=== PATIENT | female | born 1995 | race Caucasian/White ===

== ENCOUNTER 2016-07-18 10:30 | Outpatient (CLI) | payer BC, MEDICAID ==
[~2016-07-18] VITALS: Ht 160 cm; Wt 87.4 kg
[~2016-07-18 10:30] MED LIST: PREN1TAB49 PO
[2016-07-18 10:35] VITALS: BP 133/98; PULSE 85; RESP 19; Ht 160 cm; Wt 87.4 kg
--- NOTE | 2016-07-18 10:56 | RADRPT ---
PROCEDURE: US OB. CLINICAL INDICATION: Bleeding TECHNIQUE: Multiple sonographic images of the pelvis were obtained. The images were reviewed on a PACS workstation. COMPARISON: No prior studies are available for comparison. FINDINGS: There is a single live intrauterine . cardiac activity is identified at a rate of 13 7 beats per minute. presentation is cephalic. Placenta is posterior grade II. Biophysical profile score is as follows: Breathing 2 Movements 2 Tone 2 Fluid volume 2 Amniotic fluid index = 10.4 cm Total biophysical profile score = 8/8 IMPRESSION: Biophysical profile score = 8/8 Transvaginal cervical length is 3.7 cm RPTAT: HH .Jomar Bustillos MD, Date Time Electronically viewed and signed by .Jomar Bustillos MD, MD on 07/18/2016 10:56 .W/
[2016-07-18 10:59] LABS: URINE BLOOD (Dip) POC Trace-lysed (NEGATIVE)
[2016-07-18 11:59] LABS: ADD UMIC YES; URINE BILIRUBIN (Dip) NEGATIVE (NEGATIVE); URINE BLOOD (Dip) TRACE (NEGATIVE); URINE COLOR LT. YELLOW (YELLOW); URINE GLUCOSE (Dip) NEGATIVE (NEGATIVE); URINE KETONES (Dip) NEGATIVE (NEGATIVE); URINE LEUKOCYTE ESTERASE (Dip) 1+ (NEGATIVE); URINE NITRITE (Dip) NEGATIVE (NEGATIVE); URINE TOTAL PROTEIN (Dip) TRACE (NEGATIVE); URINE UROBILINOGEN (Dip) 0.2 E.U./dL (0.1-1.0)
--- NOTE | 2016-07-18 12:12 | TRIAGE ---
OB Triage Datetime Report Generated by CPN: 07/18/2016 12:12 Datetime: 07/18/2016 11:39 Stage of : OB Triage Maternal Assessment Level of Consciousness: Fully Conscious DTR's/Clonus: DTRs 1+ Headache: Denies Breath Sounds, Left: Clear and Equal Breath Sounds, Right: Clear and Equal Nausea/Vomiting: Denies RUQ Epigastric Pain: Denies Labor Evaluation Frequency: NONE Monitor Mode: External Resting Tone [place]: Relaxed Heart Rate FHR Baseline Rate: 130 Monitor Mode: External US Variability: Moderate 6-25 bpm Accelerations: 15X15 Decelerations: None Pain Assessment Pain Scale: 2 Pain Presence: Constant Pain Type: Ache Pain Location: Back Pain Goal: 3 Pain Relief Measures: Comfort Measures Membrane Status: Intact Datetime: 07/18/2016 11:34 Stage of : OB Triage Vaginal Exam Dilatation (cms): 0.0 Effacement (%): 0 Station: -4 Exam By: JESSICA RDZ Vaginal Bleeding: None Cervix, Consistency: Firm Cervix, Position: Posterior Datetime: 07/18/2016 11:00 Maternal Assessment Level of Consciousness: Fully Conscious DTR's/Clonus: DTRs 1+ Headache: Denies Blurred Vision: No Respiratory Effort: Unlabored Breath Sounds, Left: Clear and Equal Breath Sounds, Right: Clear and Equal Nausea/Vomiting: Denies RUQ Epigastric Pain: Denies Facial Edema: None Labor Evaluation Frequency: NONE Monitor Mode: External Resting Tone [place]: Relaxed Heart Rate FHR Baseline Rate: 130 Monitor Mode: External US Variability: Moderate 6-25 bpm Accelerations: 15X15 Decelerations: None Category: Category I Pain Assessment Pain Scale: 4 Pain Presence: Constant Pain Type: Ache Pain Location: Back Pain Goal: 3 Pain Relief Measures: Comfort Measures Membrane Status: Intact Datetime: 07/18/2016 10:45 Assessment Type: Triage Maternal Assessment Level of Consciousness: Fully Conscious DTR's/Clonus: DTRs 2+; No Clonus Headache: Denies Blurred Vision: No Respiratory Effort: Unlabored; Regular Rhythm; Equal Expansion Breath Sounds, Left: Clear and Equal Breath Sounds, Right: Clear and Equal Nausea/Vomiting: Denies RUQ Epigastric Pain: Denies Lower Extremities Edema: None Degree: None Upper Extremities Edema: None Degree: None Facial Edema: None Fall Risk Assessment History of Falling: (0) No Secondary Diagnosis: (0) No Ambulatory Aid: (0) Bedrest/Nurse Assist IV Therapy: (0) No Gait: (0) Normal/Bedrest/Immobile Mental Status: (0) Oriented to Own Ability Fall Score: 0 Fall Risk Score Definition: No Risk: No action required Datetime: 07/18/2016 10:42 EGA: 32.6 Datetime: 07/18/2016 10:28 Stage of : OB Triage Time of Arrival: 07/18/2016 10:28 Arrived By: Wheelchair Arrived From: Home Chief Complaint: PT CAME IN C/O BLEEDING SINCE MONDAY MORNING, STATES THAT HER BLEEDING STOPPED ON MONDAY AND RE-STARTED THIS AM WHEN SHE WIPPED THIS MORNING. Movement: Present Contractions: Denies/Absent Rupture of Membranes: Denies Vaginal Bleeding: Normal Show Vaginal Discharge: Present Recent Sexual Intercouse: Denies Abdominal Trauma: Not Applicable Patient Complaints: Back Pain Additional Patient Complaints: NONE Time Provider Notified: 07/18/2016 11:00 Provider Notified: CARON Initial Plan: MONITOR, BPP, PLACENTA, CERVICAL LENGHT
[2016-07-18 13:32] LABS: BACTERIA,URINE FEW; URINE RBCS 0-2 /HPF (0)
--- NOTE | 2016-07-18 13:43 | PN ---
DATE: The patient is a 20-year-old 33 at weeks with vaginal spotting several days ago. No vaginal bleeding , no draining fluid. Positive ____ . Vital signs within normal limits, ____ are active. Ultrasound within normal limits. ASSESSMENT AND PLAN: This patient is 33 weeks with ____ bleeding. The patient not actively bleeding at the current time and stable. The patient will be discharged home in stable condition. Dictated By: MANISHA BOURGEOIS MD /TYESHA Conf#: [id number] DID#: [id number]
== END 2016-07-18 12:00 | disposition home or self-care (01) ==
LOC: OBT 10:30 → L-D 10:32 → OBT 12:00
PROVIDERS: ATTEND Obstetrics & Gynecology
DX: O26.853 Spotting complicating pregnancy, third trimester (principal); Z3A.32 32 weeks gestation of pregnancy
CPT/HCPCS: 76817; 76818; 81001; Z7500; 81003; G0463

== ENCOUNTER 2016-08-04 18:39 | Outpatient (CLI) | payer BC ==
[~2016-08-04] VITALS: Ht 157.5 cm; Wt 90.4 kg
[2016-08-04 19:27] VITALS: BP 123/82; PULSE 86; RESP 18
[2016-08-04] MEDS ORDERED: FERR134T PO (19:34)
[2016-08-04] MEDS ORDERED: CALC600T11 PO (19:34)
--- NOTE | 2016-08-04 19:58 | RADRPT ---
PROCEDURE: US OB. CLINICAL INDICATION: Low EDWARD , pain, PIH TECHNIQUE: Transabdominal views of the pelvis are available for review. COMPARISON: 07/18/16 FINDINGS: There is a single intrauterine gestation in a vertex position. The heart rate is present at 148 bpm. The placenta is posterior. The EDWARD measures 12.7 cm. RPTAT: AA IMPRESSION: Normal EDWARD. .Rick Gleason MD, MD Date Time Electronically viewed and signed by .Rick Gleason MD, MD on 08/04/2016 19:57 .S/
[2016-08-04 20:50] LABS: ADD SCAN DIFF NO
[2016-08-04 20:59] LABS: BASOPHILS % 0.1 % (0.0-2.0); EOSINOPHILS % 0.2 % (0.0-7.0); HEMATOCRIT 34.6 % (37.0-47.0); HEMOGLOBIN 11.4 g/dl (12.0-16.0); LYMPHOCYTES # 1.6 10^3/ul (0.8-2.9); MEAN CORPUSCULAR HGB CONC 32.9 g/dl (32.0-37.0); MEAN CORPUSCULAR VOLUME 91.1 fl (82.0-101.0); MEAN PLATELET VOLUME 10.4 fl (7.4-10.4); MONOCYTE # 0.5 10^3/ul (0.3-0.9); MONOCYTES % 6.2 % (0.0-11.0); NEUTROPHIL # 6.2 10^3/ul (1.6-7.5); PLATELET COUNT 227 10^3/UL (140-415); WHITE BLOOD COUNT 8.4 10^3/ul (4.8-10.8)
[2016-08-04 21:03] LABS: POTASSIUM 3.7 mmol/L (3.5-5.1)
[2016-08-04 21:05] LABS: CREATININE 0.51 mg/dl (0.44-1.00)
[2016-08-04 21:06] LABS: ALBUMIN/GLOBULIN RATIO 0.93; TOTAL PROTEIN 6.2 g/dl (6.1-8.1); URIC ACID 4.4 mg/dl (3.1-7.9)
[2016-08-04 21:07] LABS: CALCIUM 8.5 mg/dl (8.4-10.2)
[2016-08-04 21:57] LABS: ADD UMIC YES; URINE BILIRUBIN (Dip) NEGATIVE (NEGATIVE); URINE BLOOD (Dip) 1+ (NEGATIVE); URINE COLOR YELLOW (YELLOW); URINE GLUCOSE (Dip) NEGATIVE (NEGATIVE); URINE KETONES (Dip) NEGATIVE (NEGATIVE); URINE LEUKOCYTE ESTERASE (Dip) 1+ (NEGATIVE); URINE NITRITE (Dip) NEGATIVE (NEGATIVE); URINE TOTAL PROTEIN (Dip) 2+ (NEGATIVE); URINE UROBILINOGEN (Dip) 1.0 E.U./dL (0.1-1.0)
[2016-08-04 22:13] LABS: BACTERIA,URINE FEW; MUCUS,URINE MANY; SQUAMOUS EPITHELIAL CELL,UR MODERATE
--- NOTE | 2016-08-04 23:03 | QN ---
Documentation Comment Laborist Dr Restrepo's pt 20 y.o. with an IUP at 35w 2d sent in for evaluation of an elevated blood pressure. No PATTERSON's, occasional visual changes but none at present, no epigastric pain. Pt was told by Dr Restrepo today to stop working. She is a quality engineer medical device. PMHx: elevated BP's since the end of June (07/20 140/93, 07/28 138/107, 08/04 138/ 98) PSHx: none. POBHx: x 1. BP 123/82. T=98.9. NST: baseline 145 bpm with accels to 170 bpm. No decels. No UC's. ALT/AST /. Uric acid 4.4. Plts 227K. U/A 2+ protein but also has 1+ blood. Urine is cloudy and very concentrated. EDWARD 12.7 cm. VTX. A: IUP at 35w 2d. Mild PIH. P: Off work as of today. Keep appt at clinic as scheduled next week. PIH precautions reviewed. Is to return here if for any reason the pt does not feel well. kick counts reviewed. SÁNCHEZ MARSHALL MD Aug 04, 2016 23:03
--- NOTE | 2016-08-05 00:53 | TRIAGE ---
OB Triage Datetime Report Generated by CPN: 08/05/2016 00:53 Datetime: 08/04/2016 22:35 Stage of : OB Triage Datetime: 08/04/2016 22:25 Stage of : OB Triage Datetime: 08/04/2016 21:00 Heart Rate FHR Baseline Rate: 135 Monitor Mode: External US Datetime: 08/04/2016 19:53 Monitor Mode: External US Datetime: 08/04/2016 19:35 Time of Arrival: 08/04/2016 18:36 EGA: 35.2 Arrived By: Ambulatory Arrived From: Dr. Chavez Chief Complaint: sent from clinic w/ orders for r/o PIH. States had PATTERSON amd saw spots in am an d epigastric pain "off and on" Movement: Present Contractions: Denies/Absent Rupture of Membranes: Denies Vaginal Bleeding: None Vaginal Discharge: Denies Recent Sexual Intercouse: Denies Abdominal Trauma: Not Applicable Patient Complaints: Visual Disturbance; Epigastric Pain Initial Plan: NST, EDWARD, UA,CBC,CMP,URIC ACIS Datetime: 08/04/2016 19:13 Maternal Assessment Level of Consciousness: Fully Conscious DTR's/Clonus: DTRs 2+; No Clonus Headache: Denies Blurred Vision: No Nausea/Vomiting: Denies RUQ Epigastric Pain: Denies Facial Edema: None Labor Evaluation Frequency: placed Monitor Mode: External Resting Tone [place]: Relaxed Monitor Mode: External US Comments: FHT 145 Pain Assessment Pain Scale: 0 Pain Presence: None/Denies Pain Type: N/A Datetime: 07/18/2016 10:45 Fall Risk Assessment Fall Score: 0 Fall Risk Score Definition: No Risk: No action required Datetime: 07/18/2016 10:42 EGA: 32.6
== END 2016-08-04 23:02 | disposition home or self-care (01) ==
LOC: OBT 18:39 → L-D 18:40 → OBT 23:02
PROVIDERS: ATTEND Obstetrics & Gynecology
DX: O13.3 Gestational [pregnancy-induced] hypertension without significant proteinuria, third trimester (principal); Z3A.35 35 weeks gestation of pregnancy
CPT/HCPCS: 36415; 59025; 76816; 80053; 81001; 84560; 85025; Z7500; 81003; G0463

== ENCOUNTER 2016-08-11 15:37 | Outpatient (CLI) | payer BC ==
[~2016-08-11] VITALS: Ht 157.5 cm; Wt 92.3 kg
[~2016-08-11 15:37] MED LIST changes: +CALC600T11 PO; +FERR134T PO
[2016-08-11 16:10] VITALS: Ht 157.5 cm; Wt 92.3 kg
--- NOTE | 2016-08-11 17:00 | RADRPT ---
PROCEDURE: OB ultrasound CLINICAL INDICATION: Elevated blood pressure TECHNIQUE: Multiple transverse and longitudinal OB images of the pelvis were obtained. The images were reviewed on a high-resolution PACS workstation. COMPARISON: 08/04/2016 FINDINGS: A single live intrauterine is seen. The presentation is vertex. The placenta is grade II and left fundal in location. No evidence of placenta abruption or previa is seen. The heart ra te is 137 beats per minute. The amniotic fluid index is 11.8 cm. movement 2 tone 2 breathing 2 Amniotic fluid 2 IMPRESSION: Biophysical profile of 01/31. RPTAT: HPNM Physician Nikolai Date Time Electronically viewed and signed by Physician Nikolai on 08/11/2016 16:59 /
--- NOTE | 2016-08-11 18:29 | QN ---
Documentation Comment 20 y/o female at36.2 weeks here for F/U PIH Patient had 3+ proteinuria in clinic clinic 2 day is not on any medication will repeat [facility] labs NSY and BPP NL will D/C home if all labs NL Induce at 37 weeks GEGE DOBSON MD Aug 11, 2016 18:28
[2016-08-11 18:59] LABS: ALBUMIN 2.6 g/dl (3.3-4.9); POTASSIUM 4.2 mmol/L (3.5-5.1)
[2016-08-11 19:00] LABS: ADD UMIC YES; URINE BILIRUBIN (Dip) NEGATIVE (NEGATIVE); URINE BLOOD (Dip) TRACE (NEGATIVE); URINE COLOR YELLOW (YELLOW); URINE GLUCOSE (Dip) NEGATIVE (NEGATIVE); URINE KETONES (Dip) TRACE (NEGATIVE); URINE LEUKOCYTE ESTERASE (Dip) 1+ (NEGATIVE); URINE NITRITE (Dip) NEGATIVE (NEGATIVE); URINE TOTAL PROTEIN (Dip) 4+ (NEGATIVE); URINE UROBILINOGEN (Dip) 0.2 E.U./dL (0.1-1.0)
[2016-08-11 19:01] LABS: BILIRUBIN,INDIRECT 0.2 mg/dl (0-1.1); BILIRUBIN,TOTAL 0.2 mg/dl (0.2-1.3); CREATININE 0.59 mg/dl (0.44-1.00); INR 1.01; PROTIME 13.3 Sec (12.2-14.2)
[2016-08-11 19:02] LABS: ALBUMIN/GLOBULIN RATIO 0.96; CALCIUM 8.4 mg/dl (8.4-10.2); PARTIAL THROMBOPLASTIN TIME 26.3 Sec (25.0-35.0); TOTAL PROTEIN 5.3 g/dl (6.1-8.1); URIC ACID 4.5 mg/dl (3.1-7.9)
[2016-08-11 19:26] LABS: BASOPHILS % 0.4 % (0.0-2.0); HEMATOCRIT 35.1 % (37.0-47.0); HEMOGLOBIN 11.9 g/dl (12.0-16.0); LYMPHOCYTES # 1.5 10^3/ul (0.8-2.9); MEAN CORPUSCULAR HEMOGLOBIN 30.7 pg (29.0-33.0); MEAN CORPUSCULAR HGB CONC 33.9 g/dl (32.0-37.0); MEAN CORPUSCULAR VOLUME 90.6 fl (82.0-101.0); MEAN PLATELET VOLUME 8.4 fl (7.4-10.4); MONOCYTE # 0.6 10^3/ul (0.3-0.9); MONOCYTES % 6.5 % (0.0-11.0); NEUTROPHIL # 6.6 10^3/ul (1.6-7.5); NEUTROPHILS % 76.1 % (39.0-77.0); PLATELET COUNT 222 10^3/UL (140-440); RED BLOOD COUNT 3.87 10^6/ul (4.20-5.40); RED CELL DISTRIBUTION WIDTH 14.4 % (11.5-14.5); UNCORRECTED WBC 8.6 10^3/ul (4.8-10.8); WHITE BLOOD COUNT 8.6 10^3/ul (4.8-10.8)
[2016-08-11 19:28] LABS: BACTERIA,URINE MODERATE; SQUAMOUS EPITHELIAL CELL,UR MANY; URINE RBCS 0-2 /HPF (0)
[2016-08-11 19:38] LABS: CONDITION 1
--- NOTE | 2016-08-11 22:51 | QN ---
Documentation Comment Laborist Dr Restrepo's pt 20 y.o. with an IUP at 36w 2d sent in from the clinic for evaluation of elevated blood pressures. Denies PATTERSON's, epigastric pain, visual changes. No vaginal bleeding or leaking. PMHx: none. PSHx: none. POBHx: x 1. NKDA. BP's: range 121-143/80-93, the majority of which are normal in the 120'/80's. 98.2 NST:baseline 130 bpm with accels to 170 bpm. No decels. UC's q 5-20 minutes, not felt by patient. BPP 8/8. Uric acid 4.5. ALT/AST22/17. Plts 222k. 4+protein on urine with trace blood. A: IUP at 36 w 2d. Mild PIH. P: 24 hour urine collection for protein. Return 08/15 for induction unless indicated to deliver her earlier. SÁNCHEZ MARSHALL MD Aug 11, 2016 22:51
== END 2016-08-11 21:35 | disposition home or self-care (01) ==
LOC: OBT 15:37 → L-D 15:37 → OBT 21:35
PROVIDERS: ATTEND Obstetrics & Gynecology
DX: O13.3 Gestational [pregnancy-induced] hypertension without significant proteinuria, third trimester (principal); O14.93 Unspecified pre-eclampsia, third trimester; Z3A.36 36 weeks gestation of pregnancy
CPT/HCPCS: 36415; 76818; 80053; 81001; 84560; 85025; 85384; 85610; 85730; Z7500; 81003; G0463

== ENCOUNTER 2016-08-13 10:56 | Outpatient (CLI) | payer BC ==
[~2016-08-13] VITALS: Ht 157.5 cm; Wt 92.5 kg
[2016-08-13 11:19] VITALS: Ht 157.5 cm; Wt 92.5 kg
[2016-08-13 12:00] LABS: SCRET 0.59 mg/dl (0.44-1.00)
[2016-08-13 12:17] LABS: BASOPHILS % 0.3 % (0.0-2.0); EOSINOPHILS % 0.1 % (0.0-7.0); HEMATOCRIT 37.8 % (37.0-47.0); HEMOGLOBIN 12.8 g/dl (12.0-16.0); LYMPHOCYTES # 1.7 10^3/ul (0.8-2.9); LYMPHOCYTES % 18.3 % (15.0-51.0); MEAN CORPUSCULAR HEMOGLOBIN 30.3 pg (29.0-33.0); MEAN CORPUSCULAR HGB CONC 33.8 g/dl (32.0-37.0); MEAN CORPUSCULAR VOLUME 89.7 fl (82.0-101.0); MEAN PLATELET VOLUME 8.6 fl (7.4-10.4); MONOCYTE # 0.6 10^3/ul (0.3-0.9); MONOCYTES % 6.8 % (0.0-11.0); NEUTROPHIL # 6.9 10^3/ul (1.6-7.5); NEUTROPHILS % 74.5 % (39.0-77.0); PLATELET COUNT 227 10^3/UL (140-440); RED BLOOD COUNT 4.22 10^6/ul (4.20-5.40); RED CELL DISTRIBUTION WIDTH 14.3 % (11.5-14.5); UNCORRECTED WBC 9.3 10^3/ul (4.8-10.8); WHITE BLOOD COUNT 9.3 10^3/ul (4.8-10.8)
[2016-08-13 12:18] LABS: ALBUMIN 3.2 g/dl (3.3-4.9)
--- NOTE | 2016-08-13 12:18 | RADRPT ---
PROCEDURE: US OB. CLINICAL INDICATION: Amniotic fluid volume follow-up with biophysical profile. TECHNIQUE: Transabdominal and transvaginal views of the pelvis are available for review. COMPARISON: OB sonogram 08/11/2016. FINDINGS: Single fetus present C vertex with a posterior grade II placenta identified. heart rate is 139 beats per minute. Amniotic fluid index equals 13.33 cm. Biophysical profile:2/2 Gross body movement:2/2 tone:2/2 breathin/2 Amniotic fluid index:2/2 Biophysical profile total: 01/31 IMPRESSION: 1. Single live intrauterine with an estimated gestational age of estimated age. 2. Biophysical profile is 01/31. Physician Caty Date Time Electronically viewed and signed by Mumtaz Trpilett Physician on 08/13/2016 12:17 JM/
[2016-08-13 12:19] LABS: POTASSIUM 4.3 mmol/L (3.5-5.1)
[2016-08-13 12:21] LABS: ALBUMIN/GLOBULIN RATIO 0.94; BILIRUBIN,INDIRECT 0.1 mg/dl (0-1.1); BILIRUBIN,TOTAL 0.1 mg/dl (0.2-1.3); CONDITION 1; CREATININE 0.61 mg/dl (0.44-1.00); TOTAL PROTEIN 6.6 g/dl (6.1-8.1)
[2016-08-13 12:22] LABS: CALCIUM 8.6 mg/dl (8.4-10.2); URIC ACID 4.7 mg/dl (3.1-7.9)
[2016-08-13 12:32] LABS: INR 0.94; PROTIME 12.6 Sec (12.2-14.2)
[2016-08-13 12:33] LABS: PARTIAL THROMBOPLASTIN TIME 26.5 Sec (25.0-35.0)
[2016-08-13 12:45] LABS: ADD UMIC YES; URINE BILIRUBIN (Dip) NEGATIVE (NEGATIVE); URINE BLOOD (Dip) 1+ (NEGATIVE); URINE COLOR YELLOW (YELLOW); URINE GLUCOSE (Dip) NEGATIVE (NEGATIVE); URINE KETONES (Dip) NEGATIVE (NEGATIVE); URINE LEUKOCYTE ESTERASE (Dip) TRACE (NEGATIVE); URINE NITRITE (Dip) NEGATIVE (NEGATIVE); URINE TOTAL PROTEIN (Dip) 4+ (NEGATIVE); URINE UROBILINOGEN (Dip) 0.2 E.U./dL (0.1-1.0)
[2016-08-13 12:58] LABS: MUCUS,URINE MODERATE
[2016-08-13 12:59] LABS: BACTERIA,URINE FEW
--- NOTE | 2016-08-13 15:21 | QN ---
Documentation Comment Comment Laborist Dr Restrepo's pt 20 y.o. with an IUP at 36w 4d in for fllow-up of elevated blood pressures. Denies PATTERSON's, epigastric pain, visual changes. No vaginal bleeding or leaking. PMHx: none. PSHx: none. POBHx: x 1. NKDA. BP's: range 114-135/66-83, the majority of which are normal in the 120'/80's. T=98.2 NST:baseline 130 bpm with accels to 160 bpm. No decels. UC's q 5-20 minutes, not felt by patient. BPP 8/8. EDWARD 13.3 Uric acid 4.7. ALT/AST 25/24. Plts 227k. 4+protein on urine with trace blood. 24 urine collection brought in today but the protein aspect is still a send out so will not have the results for 3-5 days. A: IUP at 36 w 2d. Mild PIH. P: Return 08/15 for induction unless indicated to deliver her earlier. Reviewed PIH sx's again with pt. SÁNCHEZ MARSHALL MD Aug 13, 2016 15:21
== END 2016-08-13 15:20 | disposition home or self-care (01) ==
LOC: L-D 10:56 → OBT 10:56
PROVIDERS: ATTEND Obstetrics & Gynecology
DX: O13.3 Gestational [pregnancy-induced] hypertension without significant proteinuria, third trimester (principal); Z3A.36 36 weeks gestation of pregnancy
CPT/HCPCS: 36415; 76818; 80053; 81001; 82565; 82575; 84156; 84560; 85025; 85384; 85610; 85730; Z7500; 81003; G0463

== ENCOUNTER 2016-08-16 06:00 | Inpatient (IN) | payer BC ==
[~2016-08-16] VITALS: Ht 157.5 cm; Wt 79.5 kg
[2016-08-16 06:31] VITALS: BMI 37.9
[2016-08-16] MEDS ORDERED: AMPICILLIN 2 GM/NS (PMX) 100 ML IV ONE (06:35)
[2016-08-16] MEDS ORDERED: IBUPROFEN 600 MG TAB PO PRN (07:00)
[2016-08-16] MEDS ORDERED: ACETAMINOPHEN/CODEINE #3 TAB PO PRN (07:00)
[2016-08-16] MEDS ORDERED: OXYTOCIN 30 UNITS/LR 500 ML IV SCH ×2 (07:00)
[2016-08-16] MEDS ORDERED: LACTATED RINGER'S 1,000 ML IV PRN (07:00)
[2016-08-16] MEDS ORDERED: BUTORPHANOL 2 MG INJ IV PRN (07:00)
[2016-08-16] MEDS ORDERED: OXYTOCIN 30 UNITS/LR 500 ML IV PRN ×2 (07:00→23:30)
[2016-08-16] MEDS ORDERED: METHYLERGONOVINE 0.2 MG INJ IM PRN ×2 (07:00→23:30)
[2016-08-16] MEDS ORDERED: MISOPROSTOL 200 MCG TAB PR PRN ×2 (07:00→23:30)
[2016-08-16] MEDS ORDERED: CARBOPROST 250 MCG INJ IM PRN ×2 (07:00→23:30)
[2016-08-16] MEDS: LACTATED RINGER'S 1,000 ML IV SCH ×3 (07:10→18:42)
[2016-08-16 07:37] VITALS: Ht 157.5 cm; Wt 79.5 kg
[2016-08-16 07:47] LABS: INR 0.95; PARTIAL THROMBOPLASTIN TIME 27.4 Sec (25.0-35.0); PROTIME 12.7 Sec (12.2-14.2)
[2016-08-16 08:26] LABS: BASOPHILS % 0.2 % (0.0-2.0); EOSINOPHILS % 0.2 % (0.0-7.0); HEMOGLOBIN 12.3 g/dl (12.0-16.0); LYMPHOCYTES # 1.9 10^3/ul (0.8-2.9); LYMPHOCYTES % 23.9 % (15.0-51.0); MEAN CORPUSCULAR HEMOGLOBIN 30.7 pg (29.0-33.0); MEAN CORPUSCULAR VOLUME 90.3 fl (82.0-101.0); MEAN PLATELET VOLUME 8.8 fl (7.4-10.4); MONOCYTE # 0.5 10^3/ul (0.3-0.9); MONOCYTES % 6.5 % (0.0-11.0); NEUTROPHIL # 5.6 10^3/ul (1.6-7.5); NEUTROPHILS % 69.2 % (39.0-77.0); PLATELET COUNT 226 10^3/UL (140-440); RED BLOOD COUNT 3.98 10^6/ul (4.20-5.40); RED CELL DISTRIBUTION WIDTH 14.9 % (11.5-14.5); UNCORRECTED WBC 8.1 10^3/ul (4.8-10.8); WHITE BLOOD COUNT 8.1 10^3/ul (4.8-10.8)
[2016-08-16 08:38] LABS: CONDITION 1; LH ANALYZER COMMENTS 1
[2016-08-16] MEDS ORDERED: DINOPROSTONE 10 MG VAG SUPP VAG ONE (10:00)
[2016-08-16] MEDS: AMPICILLIN 1 GM/NS (PMX) 50 ML IV SCH ×4 (11:09→23:00)
[2016-08-16] MEDS: BUTORPHANOL 2 MG INJ IV PRN ×2 (13:30→20:07)
--- NOTE | 2016-08-16 16:09 | HP ---
Date/Time of Note Date/Time of Note DATE: 08/16/16 TIME: 16:04 OB - History Hx of Present Free Text/Dictation admitted for induction of thr labor and PIH patient has 4+ proteinuria Last Menstrual Period: Dec 01, 2015 Estimated Due Date: Sep 02, 2016 : 2 Para: 1 Care: Good Care Ultrasounds: Normal mid trimester US Obstetrical Complications: Gestational Hypertension, Other (PIH) Medical Complications: None Past Family/Social History * Past Medical, Surgical, Family and Obstetric Histories reviewed from chart. Blood Type: B+ Rubella: immune RPR/VDRL: Negative GBS Status: Negative HBsAG: Negative OB Admission Exam Vital Signs Vital Signs see nurses notes Physical Exam HEENT: WNL Heart: Rhythm Normal Lungs: Clear, Equal Abdomen: WNL Extremities: Normal Reflexes: Normal Cervical Dilatation: None Effacement: 0% Station: -3 Membranes: Intact Amniotic Fluid: Clear Heart Rate: 150's Accelerations: Accelerations Present Decelerations: No Decelerations Varibility: Marked Contractions on Admission: None Last 72 hours Lab Results CBC & BMP 08/16/16 06:48 OB Assessment/Plan Reason for admission: induction of labor Other Assessment: PIH at 37 weeks 4+ proteinuria Induction Method: per Misoprostol Protocol GEGE DOBSON MD Aug 16, 2016 16:09
[2016-08-16] MEDS: LIDOCAINE 1% (MPF) 30 ML INJ INJ PRN ×2 (21:10→21:51)
[2016-08-16] MEDS ORDERED: FENTAnyl 50 MCG/ML VIAL IV ONE (21:30)
--- NOTE | 2016-08-16 23:15 | LDN ---
Date/Time of Note Date/Time of Note DATE: 08/16/16 TIME: 23:04 Delivery Summary Pt pushed to a precipitous without anesthesia of a 3225g male with Apgars of 9/9 over a sterile field. Easy delivery of the head followed by the anterior and posterior shoulders and the remainder of the body. The infant was placed on the mother's chest and delayed cord clamping was observed. Standard 3rd stage IV Pitocin was administered. The cord was milked, doubly clamped and cut by FOB. Cord blood was collected. An intact 3VC placenta then delivered shortly thereafter. Fundus was noted to be firm, however brisk vaginal bleeding was noted. Inspection of the vagina and perineum revealed extensive lacerations- torn R labia minora, deep R sulcal and bilateral labial lacerations. A red hughes catheter was placed to identify the urethra and to drain the bladder. All lacerations were repaired with 1% Lidocaine plain and 3- 0 Vicryl and hemostasis was achieved. Given the extent of the lacerations, an indwelling quezada catheter was placed and a vaginal packing. EBL 650ml. Of note, approximately 30 min following completion of repair, patient's pulse was noted to be persistently in the 150s. Stat EKG and CBC ordered. At the bedside, the patient was symptomatic and c/o palpitations and dizziness. Face mask with supplemental 02 applied, IVF bolus given and vagina inspected for bleeding and hematoma formation. Vaginal packing removed and bleeding noted to be minimal. No hematoma palpated on examination of sulcal tear and R labia. On- Call Anesthesiologist also called to bedside given concern for possible lidocaine toxicity. HR began to decrease rapidly to the 110s and symptoms resolved. EKG showed sinus tachycardia at 107. Will continue to monitor bleeding , UOP and assess for hematoma formation. EKG results pending. Placenta Delivered: Spontaneously Meconium: none Perineum intact?: Yes Perineal laceration repair: Extensive vaginal and labial lacerations Anesthesia type: Local Estimated blood loss: 650 Sponge & Needle done & correct: Yes All needle counts correct: Yes Any foreign bodies felt in the: No Problems: Delivery Information Sex Sex: male Apgars 1 Minute: 9 5 Minute: 9 Suctioning Nose & mouth suctioned at christopher: No Delee suction performed: No Umbilical Cord Umbilical cord with: 3 Vessels Cord presentations: no nuchal cord Cord Blood was obtained: Yes Mother & Baby Disposition Disposition Mom & Baby to Maternity; Good: Yes Baby to NICU: No TEO HUGHES MD Aug 16, 2016 23:14
[2016-08-16] MEDS ORDERED: DIPHENHYDRAMINE 50 MG INJ IV PRN (23:30)
[2016-08-16] MEDS ORDERED: DIBUCAINE 1% 30 GM OINT PR PRN (23:30)
[2016-08-16] MEDS ORDERED: SENNA/DOCUSATE NA (8.6MG/50MG) TAB PO PRN (23:30)
[2016-08-16] MEDS ORDERED: BENZOCAINE 20% 56 ML SPRAY TOP PRN (23:30)
[2016-08-16] MEDS ORDERED: ACETAMINOPHEN 325 MG TAB PO PRN (23:30)
[2016-08-16] MEDS ORDERED: ONDANSETRON 4 MG INJ IV PRN (23:30)
[2016-08-16] MEDS ORDERED: LANOLIN 7 GM TUBE TOP PRN (23:30)
[2016-08-16] MEDS: LACTATED RINGER'S 1,000 ML IV* SCH (23:48)
[2016-08-16 23:49] LABS: BASOPHILS % 0.1 % (0.0-2.0); HEMATOCRIT 28.1 % (37.0-47.0); HEMOGLOBIN 9.5 g/dl (12.0-16.0); LYMPHOCYTES # 1.2 10^3/ul (0.8-2.9); MEAN CORPUSCULAR HEMOGLOBIN 30.4 pg (29.0-33.0); MEAN CORPUSCULAR HGB CONC 33.8 g/dl (32.0-37.0); MEAN CORPUSCULAR VOLUME 89.9 fl (82.0-101.0); MEAN PLATELET VOLUME 8.3 fl (7.4-10.4); NEUTROPHIL # 15.2 10^3/ul (1.6-7.5); NEUTROPHILS % 86.9 % (39.0-77.0); PLATELET COUNT 235 10^3/UL (140-440); RED BLOOD COUNT 3.12 10^6/ul (4.20-5.40); RED CELL DISTRIBUTION WIDTH 14.6 % (11.5-14.5); UNCORRECTED WBC 17.5 10^3/ul (4.8-10.8); WHITE BLOOD COUNT 17.5 10^3/ul (4.8-10.8)
[2016-08-16 23:58] LABS: CONDITION 1; LH ANALYZER COMMENTS 1
[2016-08-17] MEDS ORDERED: IBUPROFEN 600 MG TAB PO SCH
[2016-08-17 00:44] LABS: URINE BLOOD (Dip) POC 2+ (NEGATIVE)
--- NOTE | 2016-08-17 02:29 | QN ---
Documentation Comment Laborist Pt pulse downtrending at rest and pt comfortable. However when pt transferred to wheelchair earlier, she became diaphoretic and tachycardic again. Also had episode of N/V. CBC showed Hgb 12.3-> 9.5 s/p delivery. HR again downtrended when back in bed to 90s. BPs low for pt w/SBPs 100s. Repeat vaginal exam showed edematous R labia w/o e/o hematoma formation and normal lochia. Urine appears concentrated in quezada catheter and ouput is borderline at approx 60ml/2hr. Given clinical picture suggestive of hypovolemia, pt consented for transfusion of blood products. Risks of transfusion, including infectious risks and transfusion reaction risks were discussed as well as benefits and alternatives to transfusion. Pt had an opportunity to ask questions and questions were answered to her satisfaction prior to signing consent form. Pt received 2nd IV, typed and crossed x4u PRBC and FFP. Initially planned to do CT A/P to assess pelvis, however CT is unavailable. Called Dr. Restrepo to update him on pt status. Agrees w/above plan. Recommended MRI Pelvis given unavailability of CT. MRI ordered. Plan d/w pt in detail. Questions answered to her satisfaction. Pt is currently sitting up and baby. Pt to remain on L&D until stable. TEO HERNANDEZ MD Aug 17, 2016 02:29
[2016-08-17] MEDS ORDERED: ACETAMINOPHEN/CODEINE #3 TAB PO PRN (05:00)
--- NOTE | 2016-08-17 07:36 | RADRPT ---
PROCEDURE: MR Pelvis with and without contrast. CLINICAL INDICATION: Pelvic pain. TECHNIQUE: MRI of the pelvis was performed on a 3.0 T GE MR Magnet using the following sequences: multi-planar T2 forced recovery fast spin echo with and without fat suppression, in- and opposed pha se T1 gradient recalled echo, diffusion-weighted imaging, and axial fat-suppressed 3D T1 gradient re called sequence and following the intravenous administration of 10 cc of Magnevist, multi-planar fat -suppressed 3D T1 gradient recalled echo sequences were performed. COMPARISON: None. FINDINGS: Enlarged, uterus is demonstrated, measuring up to 23 cm in craniocaudal length. No adnexal mass lesion. Pelvic sidewalls and inguinal groin regions are unremarkable. No lymphadenopathy. There is small to moderate free fluid identified within the pelvis. There are foci of increased sta bility identified in the retroperitoneum, adjacent to the abdominal aorta and right common iliac art ila. A Mao catheter is in place within the decompressed urinary bladder. Marrow signal is within normal limits. There is mild anasarca. IMPRESSION: Enlarged, uterus. Small to moderate amount of free fluid in the pelvis. There is diffuse overlying anasarca. Foci of increased susceptibility artifact noted in the retroperitoneum of indeterminate etiology, po ssibly reflecting retroperitoneal gas. Consider correlation with noncontrast CT. RPTAT: EE .Pineda Smith MD, MD Date Time Electronically viewed and signed by .Pineda Smith MD, on 08/17/2016 07:39 .C/
[2016-08-17] MEDS: LACTATED RINGER'S 1,000 ML IV* SCH ×2 (08:30→17:29)
[2016-08-17 10:00] VITALS: BP 139/89; PULSE 87; RESP 18
[2016-08-17 10:07] LABS: BASOPHILS % 0.1 % (0.0-2.0); HEMATOCRIT 26.3 % (37.0-47.0); HEMOGLOBIN 9.1 g/dl (12.0-16.0); LYMPHOCYTES % 12.5 % (15.0-51.0); MEAN CORPUSCULAR HEMOGLOBIN 30.2 pg (29.0-33.0); MEAN CORPUSCULAR HGB CONC 34.4 g/dl (32.0-37.0); MEAN CORPUSCULAR VOLUME 87.8 fl (82.0-101.0); MEAN PLATELET VOLUME 8.3 fl (7.4-10.4); MONOCYTE # 1.2 10^3/ul (0.3-0.9); MONOCYTES % 7.5 % (0.0-11.0); NEUTROPHIL # 12.6 10^3/ul (1.6-7.5); NEUTROPHILS % 79.9 % (39.0-77.0); PLATELET COUNT 149 10^3/UL (140-440); RED BLOOD COUNT 2.99 10^6/ul (4.20-5.40); RED CELL DISTRIBUTION WIDTH 15.1 % (11.5-14.5); UNCORRECTED WBC 15.8 10^3/ul (4.8-10.8); WHITE BLOOD COUNT 15.8 10^3/ul (4.8-10.8)
[2016-08-17 10:16] LABS: CONDITION 1; LH ANALYZER COMMENTS 1
[2016-08-17 10:30] VITALS: BP 148/84; PULSE 82; RESP 18
[2016-08-17 12:00] VITALS: BP 117/56; PULSE 78; RESP 18
--- NOTE | 2016-08-17 13:15 | DS ---
Date/Time of Note Date/Time of Note home next day if stable DATE: 08/17/16 TIME: 13:14 Obstetrical Discharge Record Final Diagnosis Final Diagnosis: Term delivered Other Final Diagnosis S/P vaginal delivery Vaginal Delivery Obstetrical Delivery: Spontaneous, Laceration, Repaired Complications Preg induced Hypertension Induction: Yes Condition on Discharge Physical Assessment Last Vitals: see nurses notes Voiding: Yes Bowel Movement: Yes Breast: Soft, non-tender, Filling Fundus: Firm Abdomen and Incision: soft bs + Episiotomy: N/A perineum: healing Calf Tenderness: No Patient Condition: Good GEGE DOBSON MD Aug 17, 2016 13:15
--- NOTE | 2016-08-17 13:17 | PD.PPDC ---
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
[2016-08-17] MEDS ORDERED: IBUP800T25 PO (13:36)
[2016-08-17] MEDS: CEPHALEXIN 500 MG CAP PO SCH ×2 (14:18→17:27)
[2016-08-17] MEDS: IBUPROFEN 800 MG TAB PO SCH ×2 (14:18→21:28)
--- NOTE | 2016-08-17 15:57 | RADRPT ---
Vent Rate: 104 bpm RR Interval: 0 msec MT Interval: 126 msec QRS Duration: 64 msec QT Interval: 324 msec QTC Interval: 426 msec P-R-T [place]: 38 - 60 - 35 degrees Sinus tachycardia Otherwise normal ECG Electronically Signed By: Dixon Escudero [id number]
[2016-08-17 16:00] VITALS: BP 115/77; PULSE 85; RESP 18
[2016-08-17 20:22] VITALS: BP 130/78; PULSE 80; RESP 18
[2016-08-18] MEDS: CEPHALEXIN 500 MG CAP PO SCH ×4 (01:52→18:32)
[2016-08-18 04:05] VITALS: BP 114/81; PULSE 84; RESP 18
[2016-08-18] MEDS: IBUPROFEN 800 MG TAB PO SCH ×2 (06:30→14:34)
[2016-08-18 08:15] LABS: BASOPHILS % 0.2 % (0.0-2.0); EOSINOPHILS % 0.3 % (0.0-7.0); HEMATOCRIT 23.4 % (37.0-47.0); HEMOGLOBIN 7.6 g/dl (12.0-16.0); LYMPHOCYTES # 2.4 10^3/ul (0.8-2.9); LYMPHOCYTES % 23.5 % (15.0-51.0); MEAN CORPUSCULAR HEMOGLOBIN 29.6 pg (29.0-33.0); MEAN CORPUSCULAR HGB CONC 32.5 g/dl (32.0-37.0); MEAN CORPUSCULAR VOLUME 91.1 fl (82.0-101.0); MEAN PLATELET VOLUME 10.2 fl (7.4-10.4); MONOCYTE # 0.7 10^3/ul (0.3-0.9); MONOCYTES % 6.3 % (0.0-11.0); NEUTROPHIL # 7.1 10^3/ul (1.6-7.5); NEUTROPHILS % 69.3 % (39.0-77.0); PLATELET COUNT 124 10^3/UL (140-415); RED BLOOD COUNT 2.57 10^6/ul (4.20-5.40); RED CELL DISTRIBUTION WIDTH 15.8 % (11.5-14.5); WHITE BLOOD COUNT 10.3 10^3/ul (4.8-10.8)
[2016-08-18 08:50] VITALS: BP 130/88; PULSE 75; RESP 18
[2016-08-18] MEDS ORDERED: DIPHTH/TET/ACEL PERTUSS (ADULT) 0.5 ML VIAL IM* ONE (09:00)
[2016-08-18] MEDS: LACTATED RINGER'S 1,000 ML IV* SCH ×2 (11:44→14:34)
[2016-08-18 16:15] VITALS: BP 132/75; PULSE 84; RESP 16
== END 2016-08-18 19:05 | disposition home or self-care (01) | DRG 775 ==
LOC: L-D 06:22 → PP1 08-17 09:23
PROVIDERS: ADMIT Obstetrics & Gynecology; ATTEND Obstetrics & Gynecology
PROC: 0UQMXZZ Repair Vulva, External Approach (ICD-10-PCS; 2016-08-16)
PROC: 10E0XZZ Delivery of Products of Conception, External Approach (ICD-10-PCS; principal; 2016-08-16 06:00)
DX: O13.4 Gestational [pregnancy-induced] hypertension without significant proteinuria, complicating childbirth (principal); O60.14X0 Preterm labor third trimester with preterm delivery third trimester, not applicable or unspecified; O70.0 First degree perineal laceration during delivery; Z3A.36 36 weeks gestation of pregnancy; Z37.0 Single live birth
CPT/HCPCS: 36430; 72196; 81003; 82565; 85025; 85610; 85730; 86592; 86850; 86900; 86901; 86920; 90715; 93005; J0290; J2590; J3010; J7120; P9016; P9059